=== PATIENT | male | born 1960 | race Caucasian/White ===

== ENCOUNTER → 2019-10-23 | Day surgery (SDC) | payer OTHER ==
[~2019-10-23] MED LIST: CHILDREN'S ASPI81 MG PO; KLOR-CON M2020 MEQ PO; NORCO 5-325 TA1 EAC1 PO; PRILOSEC OTC20 MG PO; REMICADE 1100 MG/VIA IV; RENAPLEX-D TAB1 EACH PO; TOPROL XL25 MG PO
--- NOTE | ~2019-10-23 | OP ---
[address] [address] OPERATIVE REPORT Name: ISAI MAHMOOD Room: [facility]#: [id number] Admission: 10/23/19 Attend Phys: Angel Allen MD Discharge: Date of : 58 Report #: [id number] THIS REPORT FOR: //name// cc: Romero Leal Damon DO ~ THIS REPORT FOR: //name// CC: Romero Allen DATE OF SERVICE: 10/23/2019 PREOPERATIVE DIAGNOSIS: End-stage renal disease. POSTOPERATIVE DIAGNOSIS: End-stage renal disease. PROCEDURE: Brachiobasilic AV fistula formation. SURGEON: Angel Allen MD LICSW: Uli Sierra. COMPLICATIONS: None. ESTIMATED BLOOD LOSS: 10 mL. SPECIMEN: None. ANESTHESIA: Local sedation. INDICATIONS FOR PROCEDURE: The patient is a very pleasant 58-year-old white male who has end-stage renal disease and is on dialysis through a tunneled dialysis catheter in his right internal jugular vein. He will require long-term dialysis. I have been asked to place an AV fistula. Unfortunately, the vein mapping shows inadequate cephalic veins bilaterally and an inadequate basilic vein on the left. For this reason, we are planning a right brachiobasilic AV fistula with plans to transpose it at a later date. Informed consent was obtained from the patient with risks including but not limited to bleeding, infection, need for further surgery, pain, , heart attack, stroke, steal syndrome. The patient understood these risks and was agreeable to proceed. DESCRIPTION OF PROCEDURE: The patient was taken to the OR and placed in supine position. After adequate sedation was initiated, his right arm was prepped and draped in usual sterile fashion. Timeout was performed. I infused 10 mL of 1% lidocaine and 0.5% Marcaine mix into the antecubital [place] [address] OPERATIVE REPORT Name: ISAI MAHMOOD Room: [facility]#: [id number] Admission: 10/23/19 Attend Phys: Angel Allen MD Discharge: Date of : 58 Report #: [id number] created a transverse incision at this location. Sharp and blunt dissections were carried down to the basilic vein. Unfortunately, appeared smaller than the preoperative vein mapping was suggested. I ligated the distal vein with a silk suture ligature and spatulated the free end. I passed 2 mm, 3 mm, and finally a 4 mm dilator, which did dilate up the vein quite easily. I suspect the patient is dehydrated today. I dissected out the brachial artery and controlled proximally and distally with clamps. I created a longitudinal arteriotomy and created an end-to-side anastomosis with the spatulated free end of the vein using a running 6-0 Prolene suture. At the completion of the anastomosis, there was adequate hemostasis and quite a good thrill running up the patient's arm. I irrigated the wound bed with antibiotic saline; controlled bleeding as needed with electrocautery, ties, clips and Shelley; closed the wound in multiple layers using 3-0 Vicryl and 4-0 Monocryl. Incision was dressed with Dermabond. The patient was taken alert and awake to recovery room in good condition with palpable pulses in right wrist and a palpable thrill in the fistula. By: [id number] Allen MD /nt
[2019-10-23 09:16] LABS: MCH 29.4 pg (26.0-34.0); MCHC 34.3 g/dL (28.0-37.0); MCV 85.8 fL (80.0-100.0); MPV 7.2 fl. (7.2-11.1); RBC 4.08 mil/uL (4.50-6.00); RDW-CV 16.2 % (10.5-14.5); WBC 9.4 thou/uL (4.0-11.0)
[2019-10-23 09:25] LABS: CALCIUM 8.4 mg/dL (8.5-10.1); CREATININE 11.8 mg/dL (0.6-1.3)
[2019-10-23 09:37] LABS: ALBUMIN 3.6 g/dL (3.4-5.0); TOTAL BILIRUBIN 0.6 mg/dL (<0.1-1.0); TOTAL PROTEIN 7.8 g/dL (6.4-8.2)
== END | disposition home or self-care (01) ==
LOC: M.SUR 08:27
PROVIDERS: Surgery Vascular Surgery
DX: N18.6 End stage renal disease (principal); Z99.2 Dependence on renal dialysis; Z98.890 Other specified postprocedural states; Z79.82 Long term (current) use of aspirin; Z79.891 Long term (current) use of opiate analgesic; Z79.899 Other long term (current) drug therapy